=== PATIENT | female | born 1980 | race Caucasian/White ===

== ENCOUNTER 2018-03-03 10:29 | Emergency (ER) | payer BC, SELFPAY ==
[2018-03-03 10:38] VITALS: BP 126/78; PULSE 76; RESP 16; TEMP 36.5; O2SAT 98
--- NOTE | 2018-03-03 10:45 | W.ED.GENAD ---
Discharge Plan Disposition Patient Disposition: HOME Condition: Good Discharge Details Chief Complaint: EyeProblem Clinical Impression: Conjunctivitis Primary Care Provider: Renate Chu ED Provider: Volodymyr Son Home Meds and New Rx's Prescriptions: New artificial tears(hypromellose) 0.5 % drops 1 drp OP BID PRN (Reason: dry eye(s)) Qty: 15 RF: 0 erythromycin 5 mg/gram (0.5 %) ointment 1.25 cm OP TID Qty: 1 RF: 0 No Action ibuprofen 200 MG capsule 200 mg PO PRN PRNQty: 3 RF: 0 albuterol sulfate [ProAir HFA] 8.5 GM HFA aerosol inhaler 1 puff Inhalation Q4H PRN RF: 0 Loratadine 10 MG TAB.RAPDIS 10 mg PO PRN RF: 0 cyclobenzaprine 10 MG tablet 10 mg PO Q8H PRN PRNQty: 20 RF: 0 Discharge Instructions Instructions: Conjunctivitis (ED) Additional Instructions: Please use the artificial tears as directed. Please apply warm compresses to your eyes regularly. Please hand wash frequently. Please only use the antibiotic ointment if you develop yellow green or gunky drainage from your eyes. He notes any vision changes, eye pain, fever, chills, or worsening of her symptoms please return immediately. If you notice any worsening of your symptoms, or any new symptoms such as vomiting, diarrhea, fever, chills, shortness of breath, chest pain, numbness, weakness, or fainting , please return immediately to the emergency department for reevaluation. Please follow up with your primary care provider as soon as possible for reassessment and reevaluation. As always, it was a pleasure participating in your medical care today. Referrals: Renate Chu [Primary Care Provider] - Medical Decision Making This is a pleasant 38-year-old female who comes in out of concern for potential conjunctivitis/pinkeye. She states that her was diagnosed yesterday she had some crusting on her eyes this morning she went to be checked out. She has no red flags of history of STDs, contact lens use, or other abnormalities. No healing discharge. Per history minimal watery discharge was present. No evidence of significant conjunctivitis on exam, normal visual acuity. No history of trauma to suggest foreign body. Physical exam demonstrates no evidence of foreign body, rust ring, or foreign body with eversion of eyelids bilaterally. At the very most the patient may have mild viral conjunctivitis. We will give a prescription for artificial tears. We will give a prescription for erythromycin ointment which I have discussed with the patient that is only to be used if she notes some purulent discharge which we had an extensive discussion regarding for when to start using this. We discussed red flags which to return and the patient understands. I have extensively reviewed the treatment plan and discharge instructions with the patient. I have addressed all patient concerns at this time. The patient was made aware of what symptoms to monitor for that would warrant a return to the emergency department. Discussed the plan with the patient, they demonstrate verbal understanding and agreement with our assessment and plan at this time. HPI General Date/Time Provider Initiated Documentation: 03/03/18 10:45. HPI Narrative: This is a pleasant 38-year-old female with no past medical history except for asthma who does not wear contact lenses or glasses who presents today for evaluation of itchiness in her eyes. She states that her significant other just was diagnosed with pinkeye in the last 24 hours, she came in to be checked out. She noticed a small amount of crusting earlier this morning but denies any purulent discharge, history of STDs, vision changes, aversion to light, history of autoimmune conditions, or trauma to the eye. She denies any significant pain. She denies any changes in her vision in general, any floaters, or any other abnormalities. She has no other complaints at this time. No other modifying factors. She denies any recent surgical or pertinent family history Related Data Home Medications Medication Instructions Recorded Confirmed Loratadine 10 mg PO PRN 12/02/16 03/03/18 albuterol sulfate [ProAir HFA] 1 puff INHALATION Q4H PRN inhaler 12/02/16 03/03/18 ibuprofen 200 mg PO PRN PRN #3 12/02/16 03/03/18 cyclobenzaprine 10 mg PO Q8H PRN PRN #20 tab 12/12/16 03/03/18 artificial tears(hypromellose) 1 drp OP BID PRN #15 ml 03/03/18 erythromycin 1.25 cm OP TID #1 gm 11/07/18 Previous Rx's Medication Instructions Recorded cyclobenzaprine 10 mg PO Q8H PRN PRN #20 tab 12/12/16 artificial tears(hypromellose) 1 drp OP BID PRN #15 ml 03/03/18 erythromycin 1.25 cm OP TID #1 gm 03/03/18 Allergies Allergy/AdvReac Type Severity Reaction Status Date / Time mold Allergy Intermediate Uncoded 03/03/18 10:40 General Stated Complaint: EyeProblem PONCE: 4 Review of Systems Review of Systems All systems reviewed & are unremarkable except as noted in HPI and below PFSH Family History Mother Essential hypertension Social History Smoking/Tobacco Use Status: Never Exam Narrative Exam Narrative: 1.Const: Well-nourished, Well-developed, appearing stated age 2.Eyes: PERRL, no conjunctival injection, and symmetrical lids. No watery or purulent discharge. No crusting over the eyelashes. No evidence of abnormality on the conjunctiva. Visual acuity is normal in both eyes. Peripheral vision intact. No nystagmus. Fundoscopic exam shows normal optic discs and normal vasculature. No external signs of preseptal cellulitis, no redness around the eye, no proptosis. No hyphema, no signs of trauma around the eye, no periorbital emphysema. Visual acuity as documented in chart. 3.ENT: Atraumatic external nose and ears. Moist MM. Neck: Symmetric, trachea midline, No thyromegaly. 4.CVS: +S1/S2, No murmurs or gallops. Peripheral pulses 2+ and equal in all extremities. Brisk capillary refill in all extremities. 5.RESP: Unlabored respiratory effort. Clear to auscultation bilaterally. No wheezes rales or rhonchi 6.GI: Soft, Nontender/Nondistended, No hepatosplenomegaly. No guarding or rebound. 7.MSK: Normocephalic/Atraumatic, Extremities w/o deformity or ttp No cyanosis or clubbing, Normal movement of all extremities 8.Skin: Warm, Dry. No rashes or lesions. 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 Sensation grossly intact, no focal neurologic deficits. 10.Psych: (AAO) x3. Appropriate mood and affect Course Vital Signs Temperature 36.5 C 03/03/18 10:38 Pulse 76 03/03/18 10:38 Respiratory Rate 16 03/03/18 10:38 Blood Pressure 126/78 03/03/18 10:38 Pulse Oximetry 98 03/03/18 10:38 Temperature 36.5 C 03/03/18 10:38 Pulse 76 03/03/18 10:38 Respiratory Rate 16 03/03/18 10:38 Respiratory Effort 03/03/18 10:38 Blood Pressure 126/78 03/03/18 10:38 Blood Pressure Position Supine 03/03/18 10:38 Pulse Oximetry 98 03/03/18 10:38 Oxygen Delivery Method Room Air 03/03/18 10:38 Oxygen Flow Rate 0 03/03/18 10:38 Pain Level 0 03/03/18 10:38
== END 2018-03-03 10:55 | disposition home or self-care (01) ==
LOC: ER 11:00
PROVIDERS: Emergency Provider Student in an Organized Health Care Education/Training Program; PCP Nurse Practitioner
DX: H10.33 Unspecified acute conjunctivitis, bilateral (principal)
CPT/HCPCS: 99283

== ENCOUNTER 2020-01-10 11:56 | Emergency (ER) | payer SELFPAY ==
[2020-01-10 12:01] VITALS: BP 108/73; PULSE 78; RESP 16; TEMP 36.5; O2SAT 96
--- NOTE | 2020-01-10 12:32 | W.ED.GENAD ---
Discharge Plan Disposition Patient Disposition: HOME Condition: Stable Discharge Details Clinical Impression: Cellulitis Primary Care Provider: Renate Chu ED Provider: Eduar Evans Home Meds and New Rx's Prescriptions: New cephalexin [Keflex] 500 mg capsule 500 mg PO QID 10 Days Qty: 40 RF: 0 Continued ibuprofen 200 MG capsule 800 mg PO PRN PRNQty: 3 RF: 0 albuterol sulfate [ProAir HFA] 8.5 GM HFA aerosol inhaler 1 puff Inhalation Q4H PRN RF: 0 Loratadine 10 MG TAB.RAPDIS 10 mg PO PRN RF: 0 Discharge Instructions Instructions: Cellulitis (ED) Additional Instructions: Keflex as directed. [id number] Tylenol and/or Motrin as directed for discomfort. I recommend continuing warm soaks and Epson salts. Please watch for new or worsening symptoms and return to the ER for any concerns. As we discussed, there is no indication for incision and drainage at this time but if it begins to swell it may require this. I will also give you the name and number of our local orthopedic provider as you may need your toenail removed if symptoms are not improving with more conservative therapy. Referrals: Tommie Daniel MD [ [facility] STAFF PHYSICIAN] - Medical Decision Making 39-year-old female presents for toe infection. It sounds as though 3 or 4 days ago she had a true paronychia which has since drained. Now the area remains tender, erythematous but is not swollen or draining. Appears to be cellulitis without any clear indication for incision and drainage. Will recommend gvni-uva-wkphomb analgesia, warm soaks and/or compresses, and I will provide Keflex. We discussed the signs and symptoms of paronychia and indication for I&D. We also discussed the importance of following up with orthopedics if symptoms do not improve with conservative care, may need the toenail extracted. Patient is comfortable with this plan and has no additional questions or concerns Medical Records Medical records reviewed: Yes I reviewed the patient's medical records. HPI General Mode of arrival: ambulatory. Date/Time Provider Initiated Documentation: 01/10/20 12:32. Limitations to Documentation: no limitations. Information obtained by: patient. HPI Narrative: 39-year-old female presents to the ER for right great toe pain. She reports for the past week or so she has had some discomfort which is initially nontraumatic. Earlier in the week she had increased pain and swelling but has been doing warm soaks and drained it with a needle. The swelling and drainage has improved but she continues having pain. Denies fever, numbness, tingling, weakness. Denies skin rash. Related Data Home Medications Medication Instructions Recorded Confirmed Loratadine 10 mg PO PRN 12/02/16 01/10/20 albuterol sulfate [ProAir HFA] 1 puff INHALATION Q4H PRN inhaler 12/02/16 01/10/20 ibuprofen 800 mg PO PRN PRN #3 12/02/16 01/10/20 cephalexin [Keflex] 500 mg PO QID 10 Days #40 cap 01/10/20 Previous Rx's Medication Instructions Recorded cephalexin [Keflex] 500 mg PO QID 10 Days #40 cap 01/10/20 Allergies Allergy/AdvReac Type Severity Reaction Status Date / Time mold Allergy Intermediate Uncoded 01/10/20 12:06 General Stated Complaint: Cellulitis PONCE: 4 Review of Systems Constitutional Constitutional: Denies fever(s) Musculoskeletal Musculoskeletal: Denies arthralgias, Denies numbness and Denies tingling Integumentary/Breasts Skin/Breast: Reports erythema and Denies rash Neurologic Neurologic: Denies numbness and Denies tingling PFSH Family History Mother Essential hypertension Social History Smoking/Tobacco Use Status: Never Alcohol Intake: current Alcohol Intake frequency: 0-2 drinks per day Drug use: Occasionally Substance use type: marijuana Do you feel safe at home: Yes Do you feel safe in your relationship?: Yes Exam Const General: cooperative, healthy appearing, comfortable and no acute distress Orientation: alert and awake [facility] Head: normal to inspection, normocephalic and atraumatic Mouth: moist mucous membranes Eyes Conjunctivae: conjunctivae normal Neck Neck: normal visual inspection, trachea midline and supple Resp Effort & Inspection: normal respiratory effort and able to speak in complete sentences Cardio Rate: regular rate Rhythm: regular rhythm Skin General skin exam: no rashes or lesions noted Neuro General: patient alert, patient awake, moves all extremities and no focal motor deficits Gait: normal gait Sensory Exam: no sensory deficits noted Extrem Ankle/foot/toe images: 1. Mild erythema, warmth, tenderness to palpation. There is no swelling, induration or fluctuance. Skin is intact. Neuro, vascular, tendon intact. Normal capillary refill Psych Appearance: grossly normal Mental Status: mental status grossly normal Course Vital Signs Vital signs: Vital Signs Temperature 36.5 C 01/10/20 12:01 Pulse 78 01/10/20 12:01 Respiratory Rate 16 01/10/20 12:01 Blood Pressure 108/73 01/10/20 12:01 Pulse Oximetry 96 01/10/20 12:01 Temperature 36.5 C 01/10/20 12:01 Temperature Source Temporal Artery Scan 01/10/20 12:01 Pulse 78 01/10/20 12:01 Respiratory Rate 16 01/10/20 12:01 Respiratory Effort Non-Labored 01/10/20 12:04 Blood Pressure 108/73 01/10/20 12:01 Blood Pressure Position Sitting 01/10/20 12:01 Pulse Oximetry 96 01/10/20 12:01 Oxygen Delivery Method Room Air 01/10/20 12:01 Oxygen Flow Rate 0 01/10/20 12:01 Pain Level 6 01/10/20 12:01
== END 2020-01-10 12:46 | disposition home or self-care (01) ==
PROVIDERS: Emergency Provider Physician Assistant; PCP Nurse Practitioner
DX: L03.031 Cellulitis of right toe (principal)
CPT/HCPCS: 99283

== ENCOUNTER 2020-09-17 12:51 | Outpatient (REF) | payer MEDICAID, SELFPAY ==
[2020-09-17 15:50] LABS: HCT 40.9 % (36.0-46.0); HGB 14.4 g/dL (11.2-15.7); MCH 31.6 pg (27.0-33.0); MCHC 35.2 % (32.0-36.0); MCV 89.9 fL (80-95); MPV 9.2 fL (8.0-11.0); Platelet Count 417 10^3/uL (130-400); RBC 4.55 10^6/uL (3.93-5.22); RDW 12.7 % (11.7-14.6); RDW-SD 42.1 fL; WBC 8.01 10^3/uL (4.4-10.8)
[2020-09-17 16:09] LABS: ALT 28 U/L (14-59); AST 18 U/L (15-37); Alkaline Phosphatase 65 U/L (46-116); BUN 13 mg/dL (7-18); Bilirubin, Total 1.2 mg/dL (0.2-1.0); CREATININE 0.8 mg/dL (0.55-1.02); Calcium 8.9 mg/dL (8.5-10.1); Calculated LDL 127 mg/dL (<100); Chloride 105 mmol/L (98-107); Cholesterol 233 mg/dL (<200); Glucose 112 mg/dL (74-106); HDL Cholesterol 93 mg/dL (40-60); Potassium 4.1 mmol/L (3.5-5.1); Sodium 142 mmol/L (136-145); TSH (W/Ref FT4) 1.49 uIU/mL (0.36-3.74); Total Protein 7.3 g/dL (6.4-8.2); Triglyceride 65 mg/dL (<150)
[2020-09-17 17:20] LABS: Hemoglobin A1C 5.3 % (<5.7)
== END 2020-09-17 12:52 | disposition home or self-care (01) ==
LOC: NCHCN 12:51
PROVIDERS: PCP Nurse Practitioner; Visit Provider Nurse Practitioner Family
DX: F10.99 Alcohol use, unspecified with unspecified alcohol-induced disorder (principal); R53.83 Other fatigue; J45.20 Mild intermittent asthma, uncomplicated; Z13.220 Encounter for screening for lipoid disorders; N92.4 Excessive bleeding in the premenopausal period; Z13.1 Encounter for screening for diabetes mellitus
CPT/HCPCS: 80053; 80061; 85027; 83036; 84443

== ENCOUNTER 2022-02-20 10:49 | Outpatient (REF) | payer MEDICAID, SELFPAY ==
--- NOTE | 2022-02-20 09:15 | PAPFT_PTH ---
PATIENT: Jose Warner LOC: [facility]#:[id number] AGE/SX: 41/F ROOM: RE02/20/[address]: Delores Rudolph : 1980 BED: DIS: 02/20/2022 SPEC #: [id number] RECD: 02/20/22 17:54 STATUS: CLARISA REQ #: [id number] JASPER: 02/20/22 09:[address]: Delores Rudolph DEPT: [facility] Cytology RECD BY: Lori Maloney Tissues: 1 - CX/ENDOCX FOR PAP SMEARS Procedures: PAP THIN PREP/UVM Screening HPV DNA PROBE Comments: [id number]
[2022-02-20 15:00] LABS: HCT 39.7 % (36.0-46.0); HGB 13.4 g/dL (11.2-15.7); MCH 30.9 pg (27.0-33.0); MCHC 33.8 % (32.0-36.0); MCV 92 fL (80-95); MPV 9.3 fL (8.0-11.0); Platelet Count 349 10^3/uL (130-400); RBC 4.34 10^6/uL (3.93-5.22); RDW 13.2 % (11.7-14.6); RDW-SD 45.1 fL; WBC 6.32 10^3/uL (4.4-10.8)
[2022-02-20 15:23] LABS: Anion Gap 7.1 mmol/L (3-11); BUN 10 mg/dL (7-18); CO2 24.9 mmol/L (21.0-32.0); CREATININE 0.7 mg/dL (0.55-1.02); Calcium 9.2 mg/dL (8.5-10.1); Calculated LDL 114 mg/dL (<100); Chloride 106 mmol/L (98-107); Cholesterol 211 mg/dL (<200); Estimated GFR 110.67 (mL/min/1.73m2); Glucose 103 mg/dL (74-106); HDL Cholesterol 85 mg/dL (40-60); Potassium 4.2 mmol/L (3.5-5.1); Sodium 138 mmol/L (136-145); Triglyceride 60 mg/dL (<150)
== END 2022-02-20 10:50 | disposition home or self-care (01) ==
LOC: NCHCN 10:49
PROVIDERS: PCP Nurse Practitioner Family; Visit Provider Nurse Practitioner Family
DX: F41.8 Other specified anxiety disorders (principal); N93.8 Other specified abnormal uterine and vaginal bleeding; E78.89 Other lipoprotein metabolism disorders; Z12.4 Encounter for screening for malignant neoplasm of cervix; Z11.51 Encounter for screening for human papillomavirus (HPV)
CPT/HCPCS: 80048; 80061; 85027; 88142; 87624

== ENCOUNTER 2022-04-21 11:32 | Emergency (ER) | payer MEDICAID, SELFPAY ==
[2022-04-21 11:34] VITALS: BP 133/79; PULSE 73; RESP 18; TEMP 37; O2SAT 98
--- NOTE | 2022-04-21 12:20 | ED.GENADUL_ITS ---
Discharge Plan Disposition Patient Disposition: Home Condition: Good Discharge Details Clinical Impression: Abscess Primary Care Provider: Delores Rudolph ED Provider: Rosio Cortez Home Meds and New Rx's Prescriptions: Continued clonazepam [Klonopin] 0.5 mg tablet 0.5 mg PO DAILY diazepam [Valium] 10 mg tablet 10 mg PO QHS PRN ibuprofen 200 MG capsule 800 mg PO PRN PRNQty: 3 albuterol sulfate [ProAir HFA] 8.5 GM HFA aerosol inhaler 1 puff Inhalation Q4H PRN Loratadine 10 MG TAB.RAPDIS 10 mg PO PRN Discharge Instructions Instructions: Cellulitis (ED), Abscess (ED) Additional Instructions: Please return immediately to the emergency department if you develop any new or worsening symptoms, if your condition does not improve as expected, or if you become otherwise concerned. It is extremely important that you call soon as possible to make an appointment to be seen in follow-up for this visit by your primary care doctor. It is very important that you either return here to the emergency department or see your PCP in 72 hours for a wound check. Referrals: Delores Rudolph [Primary Care Provider] - Discharge Data Discharge Date/Time-TO BE ENTERED AT DEPARTURE: 04/21/22 13:30 Medical Decision Making Concern for abscess. Abscess visualized under bedside US, approximately 1.5cmx1.5cm fluid collection, doppler used and negative over location. Incision and drainage performed under usual sterile technique and under US guidance with small amount of pus drained. No complications, see procedure noted. Exam/hx at this time not c/w meningitis, epidural abscess/hematoma, sepsis. Plan for PO abx, wound check here in ED in 48-72 hours and outpt f/u with PCP. I had a discussion with Patient regarding return to emergency department precautions, home care, and importance of outpatient follow-up. Pt verbalizes understanding of the plan and is amenable. Patient discharged to home with clear plan for outpatient follow-up. All questions were answered. Disposition decision was made weighing the risks and benefits of hospitalization versus outpatient treatment, the risk for further decompensation, and the patient's wishes. HPI General Mode of arrival: ambulatory . Date/Time Provider Initiated Documentation: 04/21/22 11:44 . Limitations to Documentation: no limitations . Information obtained by: patient, RN notes reviewed and old records reviewed . HPI Narrative: Jose Warner is a 42-year-old woman without reported history of medical problems presenting to the emergency department with ingrown hair in the back of her neck. Patient reports that approximately 1 week ago she noticed a bump in the back of her neck at her hairline. Patient reports that it has seemed to have grown somewhat since onset despite patient taking hot showers/using warm compresses. She reports that she feels the pain is radiating from the area and causing mild headaches. She reports that she has had similar ingrown hairs/small abscesses in other areas of her body in the past that have resolved on their own without medical treatment. She denies any other pain, fever, cough , shortness of breath, vomiting, diarrhea, numbness, weakness, other rash. Related Data Home Medications Medication Instructions Recorded Confirmed Loratadine 10 mg PO PRN 12/02/16 09/04/21 albuterol sulfate 90 mcg/actuation 1 puff inhalation Q4H PRN 12/02/16 09/04/21 aerosol inhaler (ProAir HFA) ibuprofen 200 mg capsule 800 mg PO PRN PRN ##3 12/02/16 09/04/21 clonazepam 0.5 mg tablet (Klonopin) 0.5 mg PO DAILY 09/04/21 diazepam 10 mg tablet (Valium) 10 mg PO QHS PRN 09/04/21 Allergies Allergy/AdvReac Type Severity Reaction Status Date / Time mold Allergy Intermediate Uncoded 09/04/21 12:49 General Stated Complaint: Cellulitis PONCE: 4 Review of Systems Narrative: Constitutional: denies fevers Eyes: denies eye pain ENT: denies ear pain, dental pain, sore throat Cardiovascular: denies chest pain, edema Respiratory: denies SOB, cough GI: denies abdominal pain, vomiting, diarrhea : denies flank pain MSK: denies back pain, arthralgias, myalgias Skin: reports rash/bump at the back of neck Neuro: denies headaches, numbness, weakness PFSH All Active Problems Alcohol use (Acute) DUB (dysfunctional uterine bleeding) (Acute) Pelvic pain (Acute) Family History Mother Essential hypertension Social History Smoking/Tobacco Use Status: Never Smoking risk assessment performed?: Yes Alcohol Intake: current Alcohol Intake frequency: 3 or more drinks per day Drug use: Occasionally Substance use type: marijuana Do you feel safe at home: Yes Do you feel safe in your relationship?: Yes History History 0 Para Hx # Term Pregnancies Multiple births Hx # Pregnancies Ectopic pregnancies AB induced Hx Number of Living Children AB spontaneous Exam Narrative Exam Narrative: constitutional: well and [id number], pleasant, conversing normally HENT: head atraumatic/normocephalic/normal inspection, mucous membranes moist Eyes: conjunctiva normal, sclera normal, pupils 3mm b/l Neck: no stridor, full painless, ROM, trachea midline, 2x2cm abscess central posterior neck just below hairline, no drainage, 1cm of mild surrounding cellulitis, focal TTP over abscess, no cervical spine TTP Chest: normal inspection Resp: normal work of breathing, speaking in full sentences Cardio: normal rate, normal rhythm Back: normal inspection, no rash Skin: warm, dry, normal color, no rash Neuro: alert, not altered, grossly non-focal, normal tone Ext: no edema Psych: normal mood, normal affect, normal behavior Course Vital Signs Vital signs: Vital Signs Temperature 37.0 C 04/21/22 11:34 Pulse 73 04/21/22 11:34 Respiratory Rate 18 04/21/22 11:34 Blood Pressure 133/79 04/21/22 11:34 Pulse Oximetry 98 04/21/22 11:34 Temperature 37.0 C 04/21/22 11:34 Temperature Source Tympanic 04/21/22 11:34 Pulse 73 04/21/22 11:34 Respiratory Rate 18 04/21/22 11:34 Respiratory Effort 04/21/22 11:37 Blood Pressure 133/79 04/21/22 11:34 Blood Pressure Position Supine 04/21/22 11:34 Pulse Oximetry 98 04/21/22 11:34 Oxygen Delivery Method Room Air 04/21/22 11:34 Oxygen Flow Rate 0 04/21/22 11:34 Pain Level 5 04/21/22 11:34 Procedures Abscess I/D Site: Neck Sedation/analgesia: None Local Anesthetic: Other Anesthetic Amount of anesthesia used (mL): 2 Technique: Incised with #11 Blade Amount of fluid expressed (mL): 1 Irrigation: Yes Packing used?: None PAWSS Have you Been Recently Intoxicated or Drunk Within the Last 30 days?: No Have you Ever Experienced Previous Episodes of Alcohol Withdrawal?: No Have you ever Experienced Withdrawal Seizures?: No Have you ever Experienced Delirium Tremens(DT)s?: No Have you ever undergone Alcohol Rehabilitation Treatment (i.e, inpt ot outpatient treatment programs)?: No Have you ever Experienced Blackouts?: No Have you ever Combined Alcohol with other Downers within the last 90 days?: No Have you ever Combined Alcohol with any other Substance of Abuse during the last 90 days?: No Positive Blood Alcohol level on Presentation? [PCS.BAL]: No Evidence of Increased Autonomic Activity (i.e. HR>120, tremor, sweating, agitation, nausea)?: No Result: 0
[2022-04-21] MEDS: Lidocaine/Epinephri/Tetracaine Topical Gel 3 ML TP (12:35)
[2022-04-21] MEDS: Doxycycline Hyclate 100 MG CAP PO (13:18)
[2022-04-21 13:21] VITALS: BP 124/84; PULSE 74; TEMP 36.9; O2SAT 98
== END 2022-04-21 13:30 | disposition home or self-care (01) ==
PROVIDERS: Emergency Provider Student in an Organized Health Care Education/Training Program; PCP Nurse Practitioner Family
DX: L02.11 Cutaneous abscess of neck (principal)
CPT/HCPCS: 10060

== ENCOUNTER 2022-04-24 01:44 | Outpatient (CLI) | payer MEDICAID, SELFPAY ==
--- NOTE | 2022-04-24 | DI.MAMMO_ITS ---
Exam(s) US BREAST LT COMPLETE MG MAMMO DIAGNOSTIC BI EXAM: MG MAMMO DIAGNOSTIC BI - AND COMPETE LEFT BREAST ULTRASOUND CLINICAL HISTORY: LT BREAST PAIN, N64.4 RADIATING INTO LUQ AROUND 1-2. TECHNIQUE: BOTH CC AND MLO views of both breasts mammographic images were obtained with 3D tomosynth esis technique and utilizing computer aided detection (CAD). Complete left breast ultrasound was performed including all 4 quadrants as well as the retroareolar r egion and left axilla COMPARISON: Prior mammograms were reviewed. This patient apparently has left breast pain for few mo nths, on and off. She does not feel an actual lump. FINDINGS: DIAGNOSTIC BILATERAL MAMMOGRAM: There has been no significant change in the appearance and distribution of the fibroglandular tissue. There are no new spiculated masses nor malignant-appearing microcalcification groups in either breast . There is no new architectural distortion or skin thickening-traction. COMPLETE LEFT BREAST ULTRASOUND: There is no evidence of solid or significant cystic lesions in all 4 quadrants of the left breast nor in the retroareolar region. Scanning of the left axilla is negative for significant adenopathy. IMPRESSION: 1. No mammographic evidence of malignancy in either breast. 2. Negative complete left breast ultrasound. Appropriate follow-up is repeat breast imaging in 3 months if her pain continues, with earlier imagin g if she feels a new lump.. The patient was informed of the findings and follow-up recommendations prior to leaving the [facility] t today. BI-RADS Category 3 - 3 month - Probably Benign Finding: Recommend follow-up imaging in 3 months Breast Density - Category B - Scattered areas of fibroglandular density Breast density Category C or D implies that the patient has dense breast tissue. Dense breast tissue can make it harder to find cancer on a mammogram. Dense breast tissue is also associated with an incr eased risk of breast cancer. This information about the result of the mammogram report was provided to the patient to raise their awareness. Use this report when you speak with the patient about their risks for breast cancer, which includes their family history. At that time, you may recommend additional screening tests (Ultrasoun d or MRI) as these tests may add significant information. A negative radiographic report should not delay biopsy if a dominant or clinically suspicious mass is present. Up to ten percent of cancers are not identified on mammography. A negative report may reinforce clinical impression. Adenosis and dense breasts may obscure an underlying neoplasm. False positive reports average 6 to 10%. Patient will receive a letter notifying them of these results.
== END 2022-04-24 02:04 ==
LOC: DI 01:44
PROVIDERS: PCP Nurse Practitioner Family; Visit Provider Nurse Practitioner Family
DX: N64.4 Mastodynia (principal)
CPT/HCPCS: 76642; 77062; 77066; G0279

== ENCOUNTER 2022-04-24 13:57 | Emergency (ER) | payer MEDICAID, SELFPAY ==
[2022-04-24 14:16] VITALS: BP 124/74; PULSE 75; RESP 18; TEMP 36.8; O2SAT 98
[2022-04-24 15:07] VITALS: BP 116/69; PULSE 75; RESP 19; O2SAT 97
--- NOTE | 2022-04-24 15:48 | ED.GENADUL_ITS ---
Discharge Plan Disposition Patient Disposition: Home Condition: Improving Discharge Details Clinical Impression: Cellulitis and abscess of neck Primary Care Provider: Delores Rudolph ED Provider: Ze Hu Home Meds and New Rx's Prescriptions: Continued clonazepam [Klonopin] 0.5 mg tablet 0.5 mg PO DAILY diazepam [Valium] 10 mg tablet 10 mg PO QHS PRN ibuprofen 200 MG capsule 800 mg PO PRN PRNQty: 3 albuterol sulfate [ProAir HFA] 8.5 GM HFA aerosol inhaler 1 puff Inhalation Q4H PRN Loratadine 10 MG TAB.RAPDIS 10 mg PO PRN doxycycline hyclate 100 mg tablet 100 mg PO BID 10 Days Qty: 19 0RF Discharge Instructions Instructions: Abscess (ED) Additional Instructions: Continue warm soaks 2-3 times daily. Finish antibiotics as previously prescribed. Return for any acute concern. Medical Decision Making 42-year-old female who recently had a incision and drainage of a posterior neck lesion. She presents for recheck. She has been on antibiotics with improvement. No fever or chills. The area is well-appearing. She will continue warm soaks, oral antibiotics, return for any acute concern. HPI General Mode of arrival: ambulatory . Date/Time Provider Initiated Documentation: 04/24/22 14:19 . Limitations to Documentation: no limitations . Information obtained by: patient . History of Present Illness 42 year old F presents to the emergency department with the chief complaint of Recheck abscess, described as mild, Quality is described as dull and constant, and is localized to the neck. Patient reports no radiation. Patient started experiencing this day(s) and it has been other (Improving). No relieving factors improve symptom(s), No exacerbating factors reported . Patient notes no other symptoms.. Patient did receive the following treatments prior to arrival, other (Antibiotics) Related Data Home Medications Medication Instructions Recorded Confirmed Loratadine 10 mg PO PRN 12/02/16 09/04/21 albuterol sulfate 90 mcg/actuation 1 puff inhalation Q4H PRN 12/02/16 09/04/21 aerosol inhaler (ProAir HFA) ibuprofen 200 mg capsule 800 mg PO PRN PRN ##3 12/02/16 09/04/21 clonazepam 0.5 mg tablet (Klonopin) 0.5 mg PO DAILY 09/04/21 diazepam 10 mg tablet (Valium) 10 mg PO QHS PRN 09/04/21 doxycycline hyclate 100 mg tablet 100 mg PO BID 10 days #19 tabs 04/21/22 Previous Rx's Medication Instructions Recorded doxycycline hyclate 100 mg tablet 100 mg PO BID 10 days #19 tabs 04/21/22 Allergies Allergy/AdvReac Type Severity Reaction Status Date / Time mold Allergy Intermediate Uncoded 09/04/21 12:49 General Stated Complaint: Recheck PONCE: 4 PFSH All Active Problems (Updated 04/24/22 @ 15:50 by Ze Hu MD) Abscess (Acute) Cellulitis and abscess of neck (Acute) Alcohol use (Acute) DUB (dysfunctional uterine bleeding) (Acute) Pelvic pain (Acute) Family History Mother Essential hypertension Social History Smoking/Tobacco Use Status: Never Smoking risk assessment performed?: Yes Alcohol Intake: current Alcohol Intake frequency: 3 or more drinks per day Drug use: Occasionally Substance use type: marijuana Do you feel safe at home: Yes Do you feel safe in your relationship?: Yes History History 0 Para Hx # Term Pregnancies Multiple births Hx # Pregnancies Ectopic pregnancies AB induced Hx Number of Living Children AB spontaneous Exam Narrative Exam Narrative: GEN: awake, alert, oriented 3. Pleasant, well groomed, interactive. HEAD: Normocephalic, atraumatic ENT: Mucous membranes moist, oropharynx unremarkable, External ear exam unremarkable EYES: PERRL, EOMI NECK: Full ROM, no DANIEL, no menigismus. There is posterior area of discrete cellulitis with underlying scar tissue. No surrounding fluctuance, nontender CHEST/RESP: No respiratory distress Neuro: Grossly normal neurologic exam, conversant, interactive. Psych: Speech fluent, thoughts congruent, affect normal Course Vital Signs Vital signs: Vital Signs Temperature 36.8 C 04/24/22 14:16 Pulse 75 04/24/22 14:16 Respiratory Rate 18 04/24/22 14:16 Blood Pressure 124/74 04/24/22 14:16 Pulse Oximetry 98 04/24/22 14:16 Temperature 36.8 C 04/24/22 14:16 Temperature Source Temporal Artery Scan 04/24/22 14:16 Pulse 75 04/24/22 15:07 Respiratory Rate 19 04/24/22 15:07 Blood Pressure 116/69 04/24/22 15:07 Blood Pressure Position Sitting 04/24/22 14:16 Pulse Oximetry 97 04/24/22 15:07 Oxygen Delivery Method Room Air 04/24/22 15:07 Oxygen Flow Rate 0 04/24/22 15:07 Pain Level 4 04/24/22 15:07
== END 2022-04-24 15:53 | disposition home or self-care (01) ==
PROVIDERS: Emergency Provider Emergency Medicine; PCP Nurse Practitioner Family
DX: L03.221 Cellulitis of neck (principal); L02.11 Cutaneous abscess of neck
CPT/HCPCS: 99281

== ENCOUNTER 2023-03-13 21:34 | Outpatient (REF) | payer MEDICAID, SELFPAY | END 2023-03-13 21:35 | disposition home or self-care (01) | LOC: LBN 21:34 | PROVIDERS: PCP Nurse Practitioner Family; Visit Provider Physician Assistant Medical | DX: J02.9 Acute pharyngitis, unspecified (principal) | CPT/HCPCS: 87637; 87070 ==

== ENCOUNTER 2023-03-21 10:48 | Emergency (ER) | payer MEDICAID, SELFPAY ==
[2023-03-21 10:57] VITALS: BP 132/94; PULSE 86; RESP 20; TEMP 36.7
[2023-03-21 12:56] VITALS: RESP 15
--- NOTE | 2023-03-21 14:05 | ED.GENADUL_ITS ---
Discharge Plan Disposition Patient Disposition: Home Discharge Details Clinical Impression: Abscess Primary Care Provider: Delores Rudolph ED Provider: Osvaldo Reese Home Meds and New Rx's Prescriptions: New sulfamethoxazole-trimethoprim [Bactrim DS] 800-160 mg tablet 1 tab PO BID Qty: 14 0RF Continued clonazepam [Klonopin] 0.5 mg tablet 0.5 mg PO DAILY diazepam [Valium] 10 mg tablet 10 mg PO QHS PRN ibuprofen 200 MG capsule 800 mg PO PRN PRNQty: 3 albuterol sulfate [ProAir HFA] 8.5 GM HFA aerosol inhaler 1 puff Inhalation Q4H PRN Loratadine 10 MG TAB.RAPDIS 10 mg PO PRN Discharge Instructions Instructions: Abscess (ED) Additional Instructions: Please closely monitor your symptoms and return immediately for any new or significant worsening of your condition. Please take antibiotics as prescribed and if you have improving symptoms or at least steady symptoms with no worsening you may follow-up with primary care provider at your normally scheduled appointment later this week. Again otherwise return immediately to the emergency department. Please take acetaminophen or ibuprofen as needed for pain control Referrals: Delores Rudolph [Primary Care Provider] - Discharge Data Discharge Date/Time-TO BE ENTERED AT DEPARTURE: 03/21/23 14:17 Medical Decision Making Patient presenting the emergency department for chief complaint of swollen lump in the back of her neck. Physical exam shows approximately 1 cm or less swollen tender indurated area to the back of right side of neck just lateral to spine. No lymphadenopathy is noted, slight erythema is noted, scar is present from previous incision that was performed due to similar complaints. Ultrasound was used to visualize small fluid collection in the same area that is superficial. Discussed with patient risk versus benefit of needle drainage with 18-gauge needle along with potential that this also could be a lymph node given placement but lower suspicion given appearance of it being superficial . After discussion of risk versus benefit patient gave verbal consent to attempting needle drainage. Sterile technique was utilized after appropriate anesthetic level was achieved with lidocaine. Small amount of purulent fluid was removed. Given placement on neck along with reoccurrence will place patient on Bactrim and have patient closely monitor symptoms. She already has follow-up scheduled for later this week which I feel is appropriate if she is healing well but she states clear understanding to return for new or worsening symptoms. After discussion of diagnosis and plan of care patient has no further needs, questions, or concerns and states clear understanding to return to the emergency department for any worsening symptoms. This documentation was generated using [employer] system, please disregard any oddities of phrase or misspellings. HPI General Mode of arrival: ambulatory . Date/Time Provider Initiated Documentation: 03/21/23 12:13 . Limitations to Documentation: no limitations . Information obtained by: patient and RN notes reviewed . History of Present Illness 43 year old F presents to the emergency department with the chief complaint of Lump on neck, described as moderate and similar to prior episodes, Quality is described as aching, and is localized to the neck. Patient started experiencing this day(s) (2) and it has been constant. No relieving factors improve symptom(s), No exacerbating factors reported . Patient notes no other symptoms.. Patient did receive the following treatments prior to arrival, none Related Data Home Medications Medication Instructions Recorded Confirmed Loratadine 10 mg PO PRN 12/02/16 09/04/21 albuterol sulfate 90 mcg/actuation 1 puff inhalation Q4H PRN 12/02/16 09/04/21 aerosol inhaler (ProAir HFA) ibuprofen 200 mg capsule 800 mg PO PRN PRN ##3 12/02/16 09/04/21 clonazepam 0.5 mg tablet (Klonopin) 0.5 mg PO DAILY 09/04/21 diazepam 10 mg tablet (Valium) 10 mg PO QHS PRN 09/04/21 sulfamethoxazole 800 1 tab PO BID #14 tabs 03/21/23 mg-trimethoprim 160 mg tablet (Bactrim DS) Previous Rx's Medication Instructions Recorded sulfamethoxazole 800 1 tab PO BID #14 tabs 03/21/23 mg-trimethoprim 160 mg tablet (Bactrim DS) Allergies Allergy/AdvReac Type Severity Reaction Status Date / Time mold Allergy Intermediate Uncoded 09/04/21 12:49 General Stated Complaint: GenMedical PONCE: 3 Review of Systems Constitutional Constitutional: Denies chills, Denies fever(s) and Denies headache(s) ENT Ears, Nose, Mouth, and Throat: Denies headache(s), Reports neck mass and Denies neck pain Musculoskeletal Musculoskeletal: Denies neck pain, Denies numbness, Denies stiffness and Denies tingling Integumentary/Breasts Skin/Breast: Reports as per HPI and Reports furuncle Neurologic Neurologic: Denies headache(s), Denies numbness and Denies tingling PFSH All Active Problems Abscess (Acute) Alcohol use (Acute) DUB (dysfunctional uterine bleeding) (Acute) Pelvic pain (Acute) Family History Mother Essential hypertension Social History Smoking/Tobacco Use Status: Never Smoking risk assessment performed?: Yes Alcohol Intake: current Alcohol Intake frequency: 3 or more drinks per day Drug use: Occasionally Substance use type: marijuana Housing: house Do you feel safe at home: Yes Do you feel safe in your relationship?: Yes History History 2 0 Para Hx # Term Pregnancies Multiple births Hx # Pregnancies Ectopic pregnancies AB induced Hx Number of Living Children AB spontaneous Exam Const General: cooperative, no acute distress and not ill appearing Orientation: alert, awake and oriented x3 HENMT Mouth: moist mucous membranes Neck Neck: normal visual inspection Lymphatic: no lymphadenopathy noted Neck images: 2 1. small induration/ swelling Resp Effort & Inspection: normal respiratory effort, able to speak in complete sentences and no respiratory distress Neuro General: patient alert, patient awake, patient oriented x3, moves all extremities and no focal motor deficits Sensory Exam: no sensory deficits noted Course Vital Signs Vital signs: Vital Signs Temperature 36.7 C 03/21/23 10:57 Pulse 86 03/21/23 10:57 Respiratory Rate 20 03/21/23 10:57 Blood Pressure 132/94 H 03/21/23 10:57 Temperature 36.7 C 03/21/23 10:57 Temperature Source Tympanic 03/21/23 12:56 Pulse 86 03/21/23 10:57 Respiratory Rate 15 03/21/23 12:56 Respiratory Effort Normal 03/21/23 12:56 Respiratory Depth Normal 03/21/23 12:56 Respiratory Pattern Normal 03/21/23 12:56 Blood Pressure 132/94 H 03/21/23 10:57 Blood Pressure Position Sitting 03/21/23 10:57 Oxygen Delivery Method Room Air 03/21/23 10:57 Oxygen Flow Rate 0 03/21/23 10:57 Pain Level 6 03/21/23 10:57 Procedures Abscess I/D Site: Neck Side (if applicable): Right Local Anesthetic: Lidocaine 1% Amount of anesthesia used (mL): 2 Technique: Needle Aspiration Amount of fluid expressed (mL): 0.5 Packing used?: None
[2023-03-21] MEDS: Sulfameth/Trimeth DS TAB 1 TAB PO (14:13)
== END 2023-03-21 14:17 | disposition home or self-care (01) ==
PROVIDERS: Emergency Provider Nurse Practitioner Family; PCP Nurse Practitioner Family
DX: L02.11 Cutaneous abscess of neck (principal)
CPT/HCPCS: 10060

== ENCOUNTER 2023-03-26 17:36 | Outpatient (REF) | payer MEDICAID, SELFPAY ==
[2023-03-26 18:54] LABS: ALT 28 U/L (14-59); AST 21 U/L (15-37); Albumin 3.8 g/dL (3.4-5.0); Alkaline Phosphatase 64 U/L (46-116); Anion Gap 7.9 mmol/L (3-11); BUN 11 mg/dL (7-18); Bilirubin, Total 0.6 mg/dL (0.2-1.0); CO2 27.1 mmol/L (21.0-32.0); CREATININE 0.8 mg/dL (0.55-1.02); Calcium 9.2 mg/dL (8.5-10.1); Calculated LDL 124 mg/dL (<100); Chloride 102 mmol/L (98-107); Cholesterol 274 mg/dL (<200); Estimated GFR 93.12 (mL/min/1.73m2); Glucose 102 mg/dL (74-106); HDL Cholesterol 118 mg/dL (40-60); Sodium 137 mmol/L (136-145); Total Protein 7.7 g/dL (6.4-8.2); Triglyceride 164 mg/dL (<150)
[2023-03-26 19:34] LABS: Bilirubin, Direct 0.2 mg/dL (0.0-0.2)
== END 2023-03-26 17:37 | disposition home or self-care (01) ==
LOC: NCHCN 17:36
PROVIDERS: PCP Nurse Practitioner Family; Visit Provider Nurse Practitioner Family
DX: E80.6 Other disorders of bilirubin metabolism (principal); E78.89 Other lipoprotein metabolism disorders; Z00.00 Encounter for general adult medical examination without abnormal findings
CPT/HCPCS: 80053; 80061; 82248

== ENCOUNTER 2023-10-31 08:41 | Emergency (ER) | payer MEDICAID, SELFPAY ==
[2023-10-31 08:45] VITALS: BP 135/85; PULSE 85; RESP 18; TEMP 36.1; O2SAT 95
[2023-10-31 08:48] VITALS: BP 135/85; PULSE 85; RESP 18; TEMP 36.1; O2SAT 95
--- NOTE | 2023-10-31 09:00 | DI.RAD_ITS ---
Exam(s) XR CHEST 2V PA LATERAL EXAM: XR CHEST 2V PA LATERAL CLINICAL HISTORY: cough. TECHNIQUE: 2D digital imaging was performed. COMPARISON: No exams were available for comparison FINDINGS: 2 views: Heart size is normal. The mediastinum is not widened. Lungs are clear. No infiltrates nor pleural effusions. IMPRESSION: No acute pulmonary findings. DATA REPOSITORY: RADIATION DOSE DELIVERED:
[2023-10-31 09:11] VITALS: RESP 5
[2023-10-31] MEDS: Albuterol/Ipratropium 3 ML UPD VIAL UPD (09:11)
[2023-10-31] MEDS: predniSONE 20 MG TAB 40 MG PO (09:12)
--- NOTE | 2023-10-31 09:44 | ED.GENADUL_ITS ---
Discharge Plan Disposition Patient Disposition: Home Condition: Stable Discharge Details Clinical Impression: Bronchitis Primary Care Provider: Delores Rudolph ED Provider: Lori Spain Home Meds and New Rx's Prescriptions: New prednisone 20 mg tablet 40 mg PO ONCE Qty: 8 0RF doxycycline hyclate 100 mg capsule 100 mg PO BID Qty: 14 0RF Continued clonazepam [Klonopin] 0.5 mg tablet 0.5 mg PO DAILY diazepam [Valium] 10 mg tablet 10 mg PO QHS PRN ibuprofen 200 MG capsule 800 mg PO PRN PRNQty: 3 albuterol sulfate [ProAir HFA] 8.5 GM HFA aerosol inhaler 1 puff Inhalation Q4H PRN Loratadine 10 MG TAB.RAPDIS 10 mg PO PRN Discharge Instructions Instructions: Acute bronchitis Additional Instructions: Take doxycycline only if you are still very symptomatic tomorrow, this may be viral and therefore may not respond to the antibiotic Give the prednisone and albuterol time to work for today. 2 puffs of your inhaler every 4 hours with the spacer Should you develop fever, worsening symptoms please return for reassessment do continue the prednisone regardless of whether or not you choose to take anti biotic Referrals: Delores Rudolph [Primary Care Provider] - 2 days HPI General Date/Time Provider Initiated Documentation: 10/31/23 08:41 . HPI Narrative: This 43-year-old female presents with cough, wheezing, shortness of breath. Patient states she has been sick for approximately a week and a half. History of asthma. Smokes marijuana daily. Denies any chance of . Has been using an inhaler at home with relief in symptoms. Denies any nausea or vomiti ng. Denies fever or chills. Denies any recent flights, surgeries, long drives, or history of coagulopathy. Related Data Home Medications Medication Instructions Recorded Confirmed Loratadine 10 mg PO PRN 12/02/16 10/31/23 albuterol sulfate 90 mcg/actuation 1 puff inhalation Q4H PRN 12/02/16 10/31/23 aerosol inhaler (ProAir HFA) ibuprofen 200 mg capsule 800 mg PO PRN PRN ##3 12/02/16 10/31/23 clonazepam 0.5 mg tablet (Klonopin) 0.5 mg PO DAILY 09/04/21 10/31/23 diazepam 10 mg tablet (Valium) 10 mg PO QHS PRN 09/04/21 10/31/23 doxycycline hyclate 100 mg capsule 100 mg PO BID #14 caps 10/31/23 prednisone 20 mg tablet 40 mg (2 x 20 mg) PO ONCE #8 tabs 10/31/23 Previous Rx's Medication Instructions Recorded doxycycline hyclate 100 mg capsule 100 mg PO BID #14 caps 10/31/23 prednisone 20 mg tablet 40 mg (2 x 20 mg) PO ONCE #8 tabs 10/31/23 Allergies Allergy/AdvReac Type Severity Reaction Status Date / Time mold Allergy Intermediate Other (See Uncoded 10/31/23 08:47 Comment) General Stated Complaint: RespSymp PONCE: 3 Exam Narrative Exam Narrative: Alert and oriented, no acute distress lungs with wheezing, no significant respiratory distress, cardiac rate rhythm regular no peripheral edema Course Vital Signs Vital signs: Vital Signs Temperature 36.1 C L 10/31/23 08:45 Pulse 85 10/31/23 08:45 Respiratory Rate 18 10/31/23 08:45 Blood Pressure 135/85 10/31/23 08:45 Pulse Oximetry 95 10/31/23 08:45 Temperature 36.1 C L 10/31/23 08:48 Temperature Source Temporal Artery Scan 10/31/23 08:48 Pulse 85 10/31/23 08:48 Respiratory Rate 18 10/31/23 08:48 Respiratory Effort Normal, Non-Labored 10/31/23 08:53 Respiratory Depth Normal 10/31/23 08:53 Blood Pressure 135/85 10/31/23 08:48 Blood Pressure Position Sitting 10/31/23 08:48 Pulse Oximetry 95 10/31/23 08:48 Oxygen Delivery Method Room Air 10/31/23 08:48 Oxygen Flow Rate 0 10/31/23 08:48 Medical Decision Making 43-year-old female with wheezing throughout, no hypoxia, no significant respiratory distress, given DuoNeb therapy. Improvement in irrigation. Spacer was supplied as patient does have an albuterol inhaler but has not been using spacer. Prednisone daily for the next 5 days encouraged for suspected br onchitis. Should patient not have improvement in symptoms in 24 to 48 hours doxycycline as prescribed given that she does smoke in the outpatient setting and there is likely a component of COPD. Recheck in 48 hours recommended and return precautions reviewed and patient expressed understanding. Chest x-ray no clinical signs or symptoms consistent with right PE and no visible pneumonia on x-ray per radiology interpretation my review. No chest discomfort. Quality:SDOH Health Related Social Needs: No Data to Display PFSH All Active Problems (Updated 10/31/23 @ 09:50 by DENISSE Lacy) Bronchitis (Acute) Sebaceous cyst (Acute) Dysmenorrhea (Acute) Alcohol abuse (Chronic) Hyperbilirubinemia (Acute) Cyst of skin (Acute) Alcohol use (Acute) DUB (dysfunctional uterine bleeding) (Acute) Pelvic pain (Acute) Medical History Localized skin eruption Anxiety Mild intermittent allergic asthma without complication Panic disorder Family History Mother Essential hypertension Social History Smoking/Tobacco Use Status: Never Smoking risk assessment performed?: Yes Alcohol Intake: current Alcohol Intake frequency: 3 or more drinks per day Drug use: Daily Substance use type: marijuana Housing: house Do you feel safe at home: Yes Do you feel safe in your relationship?: Yes History History 0 Para Hx # Term Pregnancies Multiple births Hx # Pregnancies Ectopic pregnancies AB induced Hx Number of Living Children AB spontaneous PAWSS Have you Been Recently Intoxicated or Drunk Within the Last 30 days?: No Have you Ever Experienced Previous Episodes of Alcohol Withdrawal?: No Have you ever Experienced Withdrawal Seizures?: No Have you ever Experienced Delirium Tremens(DT)s?: No Have you ever undergone Alcohol Rehabilitation Treatment (i.e, inpt ot outpatient treatment programs)?: No Have you ever Experienced Blackouts?: No Have you ever Combined Alcohol with other Downers within the last 90 days?: No Have you ever Combined Alcohol with any other Substance of Abuse during the last 90 days?: No Positive Blood Alcohol level on Presentation? [PCS.BAL]: No Evidence of Increased Autonomic Activity (i.e. HR>120, tremor, sweating, agitation, nausea)?: No Result: 0
--- NOTE | 2023-10-31 10:06 | DI.VRAD_ITS ---
PROCEDURE INFORMATION: Exam: XR Chest Exam date and time: 10/31/2023 9:44 AM Age: 43 years old Clinical indication: Cough TECHNIQUE: Imaging protocol: Radiologic exam of the chest. Views: 2 views. COMPARISON: No relevant prior studies available. FINDINGS: Lungs: Unremarkable. No consolidation. Pleural spaces: Unremarkable. No pleural effusion. No pneumothorax. Heart/Mediastinum: Unremarkable. No cardiomegaly. Bones/joints: Unremarkable. IMPRESSION: No acute findings. Dictated and Authenticated by: Antony Neal MD. Ordering:REMY Sandoval MD
== END 2023-10-31 10:16 | disposition home or self-care (01) ==
PROVIDERS: Emergency Provider Physician Assistant; PCP Nurse Practitioner Family
DX: J20.9 Acute bronchitis, unspecified (principal); J45.909 Unspecified asthma, uncomplicated
CPT/HCPCS: 94640; 99284; 71046; 99283; J7512; J7620

== ENCOUNTER 2024-11-28 10:05 | Emergency (ER) | payer MEDICAID, SELFPAY ==
[2024-11-28 10:09] VITALS: BP 132/78; PULSE 79; RESP 16; TEMP 36.7; O2SAT 98
[2024-11-28 10:13] VITALS: BP 132/78; PULSE 79; RESP 16; TEMP 36.7; O2SAT 98
--- NOTE | 2024-11-28 11:03 | W.ED.GENAD ---
Discharge Plan Disposition Patient Disposition: Home Condition: Stable Discharge Details Clinical Impression: Bilateral hand numbness Primary Care Provider: Delores Rudolph ED Provider: Abiola Grady Home Meds and New Rx's Prescriptions: No Action clonazepam [Klonopin] 0.5 mg tablet 0.5 mg PO DAILY ibuprofen 200 MG capsule 800 mg PO PRN PRNQty: 3 albuterol sulfate [ProAir HFA] 8.5 GM HFA aerosol inhaler 1 puff Inhalation Q4H PRN Loratadine 10 MG TAB.RAPDIS 10 mg PO PRN Discharge Instructions Instructions: Carpal tunnel syndrome, Hand Numbness, Carpal Tunnel Exercises Additional Instructions: Wear wrist splints at night to see if it helps with symptoms. You may wear them during the day if needed. Recommend anti-inflammatories such as ibuprofen. You may also use Tylenol as needed for pain. Please follow-up with primary care. If symptoms persist you may need an EMG or orthopedic evaluation and follow-up. Discharge Data Discharge Physician: Abiola Grady [facility] General Date/Time Provider Initiated Documentation: 11/28/24 10:14. HPI Narrative: 44-year-old female presents for evaluation of bilateral hand numbness. Patient states over the last couple of months she has noticed some numbness in her hands primarily at night and in the morning. Over the last week or so she has noticed some symptoms during the day. It is worse in her right hand versus her left. It affects all of the fingers and her hand. She denies any known trauma. No neck or back pain. No weakness. No known tick bites or rashes. No new medications. No nausea, vomiting, diarrhea. No history of diabetes. She states that she had been unemployed for a while however prior to the symptoms starting she became employed full-time and does do a lot of movement with her wrists while working. No known history of carpal tunnel. Patient states that she did notice some slight discomfort under her right armpit today however feels that is likely secondary to embedded hair follicle. Related Data Home Medications ?Medication ?Instructions ?Recorded ?Confirmed Loratadine 10 mg PO PRN 12/02/16 11/28/24 albuterol sulfate 90 mcg/actuation 1 puff inhalation Q4H PRN 12/02/16 11/28/24 aerosol inhaler (ProAir HFA) ibuprofen 200 mg capsule 800 mg PO PRN PRN ##3 12/02/16 11/28/24 clonazepam 0.5 mg tablet (Klonopin) 0.5 mg PO DAILY 09/04/21 11/28/24 Allergies Allergy/AdvReac Type Severity Reaction Status Date / Time mold Allergy Intermediate Other (See Uncoded 11/28/24 10:13 Comment) General Stated Complaint: GenMedical PONCE: 3 Review of Systems Narrative: Remainder of review of systems otherwise negative except for as noted in the HPI x 5. Exam Narrative Exam Narrative: General: non-toxic, no respiratory distress, comfortable HEENT: normocephalic, atraumatic, lids and lashes normal, PERRL, EOMI, anicteric sclera, no conjunctival injection, moist oral mucosa Neck: No vertebral tenderness, no meningeal signs Musculoskeletal: No pain to palpation over trapezius, 2+ radial pulses bilaterally, full range of motion of arms and legs, no tenderness to palpation. no clubbing, cyanosis, or edema Neurologic: appropriate for age, strength normal Psych: alert and oriented Skin: Small amount of swelling to right axilla without any erythema, warmth, fluctuance, otherwise no petechiae, no lesions, warm and dry Course Vital Signs Vital signs: Vital Signs Temperature 36.7 C 11/28/24 10:09 Pulse 79 11/28/24 10:09 Respiratory Rate 16 11/28/24 10:09 Blood Pressure 132/78 11/28/24 10:09 Pulse Oximetry 98 11/28/24 10:09 Temperature 36.7 C 11/28/24 10:13 Pulse 79 11/28/24 10:13 Respiratory Rate 16 11/28/24 10:13 Blood Pressure 132/78 11/28/24 10:13 Pulse Oximetry 98 11/28/24 10:13 Pain Level 0 11/28/24 10:13 Medical Decision Making 44-year-old female presents for evaluation of bilateral hand numbness which has been intermittent and primarily at night. Clinically patient is neurologically intact at this time. She has got full strength and sensation. Her symptoms are consistent with possible carpal tunnel. There is a small area of swelling under her right axilla however there is no erythema, warmth, induration, fluctuance. Not amendable to I&D at this time. She will continue to monitor the area. Laboratory studies are unremarkable. Tick panel pending. Patient is given bilateral wrist splints to see if this helps with pain. I have recommended close follow-up with primary care. She understands that she may need to see orthopedics and/or to have an EMG and follow-up if symptoms persist. PFSH All Active Problems (Updated 11/28/24 @ 11:58 by Abiola Grady MD) Bilateral hand numbness (Acute) Sebaceous cyst (Acute) Dysmenorrhea (Acute) Alcohol abuse (Chronic) Hyperbilirubinemia (Acute) Cyst of skin (Acute) Alcohol use (Acute) DUB (dysfunctional uterine bleeding) (Acute) Pelvic pain (Acute) Medical History Localized skin eruption Anxiety Mild intermittent allergic asthma without complication Panic disorder Family History Mother Essential hypertension Social History Smoking/Tobacco Use Status: Never Smoking risk assessment performed?: Yes Alcohol Intake: current Alcohol Intake frequency: 3 or more drinks per day Drug use: Daily Substance use type: marijuana Housing: house Do you feel safe at home: Yes Do you feel safe in your relationship?: Yes History History 0 Para Hx # Term Pregnancies Multiple births Hx # Pregnancies Ectopic pregnancies AB induced Hx Number of Living Children AB spontaneous
[2024-11-28 11:07] LABS: Abs Immature Grans 0.00 10^3/uL (0.0-0.06); HCT 39.3 % (36.0-46.0); HGB 13.5 g/dL (11.2-15.7); Immature Grans % 0.0 %; MCH 31.4 pg (27.0-33.0); MCHC 34.4 % (32.0-36.0); MCV 91 fL (80-95); MPV 9.0 fL (8.0-11.0); Platelet Count 360 10^3/uL (130-400); RBC 4.30 10^6/uL (3.93-5.22); RDW 13.1 % (11.7-14.6); RDW-SD 43.8 fL; WBC 4.41 10^3/uL (4.4-10.8)
[2024-11-28 11:33] LABS: ALT 31 U/L (14-59); AST 20 U/L (15-37); Albumin 3.6 g/dL (3.4-5.0); Alkaline Phosphatase 64 U/L (46-116); Anion Gap 7.4 mmol/L (3-11); BUN 11 mg/dL (7-18); Bilirubin, Total 0.8 mg/dL (0.2-1.0); CO2 25.6 mmol/L (21.0-32.0); Calcium 9.2 mg/dL (8.5-10.1); Chloride 106 mmol/L (98-107); Estimated GFR 117.80 (mL/min/1.73m2); Glucose 121 mg/dL (74-106); Potassium 3.9 mmol/L (3.5-5.1); Sodium 139 mmol/L (136-145); Total Protein 7.0 g/dL (6.4-8.2)
[2024-11-29 10:34] LABS: Lyme Ab w Rflx to Lyme Confirm Negative (Negative)
[2024-11-30 22:41] LABS: B. miyamotoi PCR Negative (Negative); Babesia divergens/MO-1 Negative (Negative); Ehrlichia muris eauclairensis Negative (Negative)
== END 2024-11-28 12:32 | disposition home or self-care (01) ==
PROVIDERS: Emergency Provider Emergency Medicine Emergency Medical Services; PCP Nurse Practitioner Family
DX: R20.0 Anesthesia of skin (principal); M25.531 Pain in right wrist; M25.532 Pain in left wrist
CPT/HCPCS: 99283 ×2; 29125; 80053; 87798; 85025; 86618

== ENCOUNTER 2025-04-23 12:15 | Emergency (ER) | payer MEDICAID, SELFPAY ==
[2025-04-23 12:28] VITALS: BP 125/82; PULSE 75; RESP 15; TEMP 36.6; O2SAT 98
--- NOTE | 2025-04-23 16:07 | W.ED.GENAD ---
Discharge Plan Disposition Patient Disposition: Home Discharge Details Clinical Impression: Acute right-sided low back pain Primary Care Provider: Delores Rudolph ED Provider: Arun Hogan Home Meds and New Rx's Prescriptions: New lidocaine [Lidoderm] 5 % adhesive patch,medicated 1 patch topical DAILY Qty: 15 0RF Rx Instructions: leave on most painful area for up to 12 hrs methocarbamol 750 mg tablet 750 mg PO TID Qty: 7 0RF Continued clonazepam [Klonopin] 0.5 mg tablet 0.5 mg PO DAILY ibuprofen 200 MG capsule 800 mg PO PRN PRNQty: 3 albuterol sulfate [ProAir HFA] 8.5 GM HFA aerosol inhaler 1 puff Inhalation Q4H PRN Loratadine 10 MG TAB.RAPDIS 10 mg PO PRN Discharge Instructions Instructions: Low back pain in adults Additional Instructions: You are seen in the emergency department for your low back pain. As we discussed if you develop any numbness or tingling between your legs or if you lose control of your bowels or bladder or if you have any other concerns please return to the emergency department. You most likely have had a musculoskeletal strain for which you should take the prescribed muscle relaxer in addition to the medications below. For your pain please take medications as follows: 1. Take acetaminophen (Tylenol), 1,000 mg (two 500 mg tabs) every 6 hours [2. Take ibuprofen (Advil), 400 mg every 6 hours.] Stand Alone Forms: Portal Information, Work Release Discharge Data Discharge Date/Time-TO BE ENTERED AT DEPARTURE: 04/23/25 16:25 HPI General Date/Time Provider Initiated Documentation: 04/23/25 12:46. HPI Narrative: MDM This is an overall very well-appearing normothermic and nontachycardic 45-year-old female with musculoskeletal back pain for which patient will receive methocarbamol and empiric trial of discharge with expectant outpatient management. No loss of bowel or bladder control to suggest cauda equina. Based on age and acuity of the presentation and not suspicious for malignancy. No recent spinal surgeries to suggest increased risk for spinal epidural hematoma. No fevers nor IV drug use to suggest increased risk for spinal epidural abscess. Soft nontender abdomen so not suspicious for intra-abdominal infection. No rash to flank to suggest zoster. No history of ureteral lithiasis to suggest ureteral lithiasis. Patient is neurologically intact so not suspicious for spinal cord compression. She is intact patellar reflexes and no clonus at the ankles. I provided the patient with a work note. We discussed that patient should return to the ED if patient developed any weakness in any extremities if she lost control of her bowels or bladder or if she had any other concerns. She understood her return indications and was discharged with an empiric trial of expectant outpatient management. We discussed scheduled acetaminophen and ibuprofen and I also prescribed Lidoderm patch. HPI History of Present Illness This is a patient presenting with back pain. The patient began experiencing back pain 2 days ago. The pain is localized to the right side of her back. She has a history of similar episodes and believes the current one is not severe. She reports no anterior pain, nausea, vomiting, fever, cough, or chest pain. She also reports no numbness in the perineal area. She has no history of kidney stones or back surgeries. She is not an intravenous drug user. She is able to move her legs without difficulty but experiences pain when stretching. She is seeking muscle relaxants as a potential treatment. 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 She has carpal tunnel syndrome, which causes numbness in her hands and leads to frequent tossing and turning during sleep. Exam General: Well-appearing in no acute distress speaking in complete sentences. Head: Normocephalic, atraumatic. Eye: Extraocular eye movements intact. No conjunctival injection. No scleral icterus. Ear, nose, mouth, throat: Grossly normal inspection. Normal voice, handling secretions normally. Neck: Trachea midline. Cardiovascular: Well-perfused distal extremities. Respiratory: Nonlabored respiration. Clear lungs bilaterally. Back: No thoracic nor lumbar spinal tenderness. Patient has a right sided low paraspinal muscle lumbar tenderness. Gastrointestinal: Nondistended abdomen. Musculoskeletal: No edema. Moving all 4 extremities spontaneously. 5 out of 5 bilateral lower extremity strength in dorsi and plantarflexion. 2+ bilateral patellar reflexes. No clonus to ankles bilaterally. Skin: Normal for age and race, grossly normal temperature and turgor. No acute rash. Neurologic: Alert and appropriate, no apparent acute deficits. Psychiatric: Mood and manner are appropriate. Grooming and personal hygiene are appropriate. Related Data Home Medications ?Medication ?Instructions ?Recorded ?Confirmed Loratadine 10 mg PO PRN 12/02/16 04/23/25 albuterol sulfate 90 mcg/actuation 1 puff inhalation Q4H PRN 12/02/16 04/23/25 aerosol inhaler (ProAir HFA) ibuprofen 200 mg capsule 800 mg PO PRN PRN ##3 12/02/16 04/23/25 clonazepam 0.5 mg tablet (Klonopin) 0.5 mg PO DAILY 09/04/21 04/23/25 lidocaine 5 % topical patch 1 patch topical DAILY #15 ea 04/23/25 (Lidoderm) methocarbamol 750 mg tablet 750 mg PO TID #7 tabs 04/23/25 Previous Rx's ?Medication ?Instructions ?Recorded lidocaine 5 % topical patch 1 patch topical DAILY #15 ea 04/23/25 (Lidoderm) methocarbamol 750 mg tablet 750 mg PO TID #7 tabs 04/23/25 Allergies Allergy/AdvReac Type Severity Reaction Status Date / Time mold Allergy Intermediate Other (See Uncoded 04/23/25 12:31 Comment) General Stated Complaint: Nk/Back Pain PONCE: 3 Course Vital Signs Vital signs: Vital Signs Temperature 36.6 C 04/23/25 12:28 Pulse 75 04/23/25 12:28 Respiratory Rate 15 04/23/25 12:28 Blood Pressure 125/82 04/23/25 12:28 Pulse Oximetry 98 04/23/25 12:28 Temperature 36.6 C 04/23/25 12:28 Temperature Source Oral 04/23/25 12:28 Pulse 75 04/23/25 12:28 Respiratory Rate 15 04/23/25 12:28 Blood Pressure 125/82 04/23/25 12:28 Blood Pressure Position Sitting 04/23/25 12:28 Pulse Oximetry 98 04/23/25 12:28 Oxygen Delivery Method Room Air 04/23/25 12:28 Oxygen Flow Rate 0 04/23/25 12:28 Pain Level 10 04/23/25 12:28 PFSH All Active Problems (Updated 04/23/25 @ 16:17 by Arun Hogan MD) Acute right-sided low back pain (Acute) Bilateral carpal tunnel syndrome (Acute) Sebaceous cyst (Acute) Dysmenorrhea (Acute) Alcohol abuse (Chronic) Hyperbilirubinemia (Acute) Cyst of skin (Acute) Alcohol use (Acute) DUB (dysfunctional uterine bleeding) (Acute) Pelvic pain (Acute) Medical History Localized skin eruption Anxiety Mild intermittent allergic asthma without complication Panic disorder Family History Mother Essential hypertension Social History Smoking/Tobacco Use Status: Never Smoking risk assessment performed?: Yes Alcohol Intake: current Alcohol Intake frequency: 3 or more drinks per day Drug use: Daily Substance use type: marijuana Housing: house Do you feel safe at home: Yes Do you feel safe in your relationship?: Yes History History 0 Para Hx # Term Pregnancies Multiple births Hx # Pregnancies Ectopic pregnancies AB induced Hx Number of Living Children AB spontaneous PAWSS Have you Been Recently Intoxicated or Drunk Within the Last 30 days?: No Have you Ever Experienced Previous Episodes of Alcohol Withdrawal?: No Have you ever Experienced Withdrawal Seizures?: No Have you ever Experienced Delirium Tremens(DT)s?: No Have you ever undergone Alcohol Rehabilitation Treatment (i.e, inpt ot outpatient treatment programs)?: No Have you ever Experienced Blackouts?: No Have you ever Combined Alcohol with other Downers within the last 90 days?: No Have you ever Combined Alcohol with any other Substance of Abuse during the last 90 days?: No Positive Blood Alcohol level on Presentation? [PCS.BAL]: No Evidence of Increased Autonomic Activity (i.e. HR>120, tremor, sweating, agitation, nausea)?: No Result: 0
== END 2025-04-23 16:25 | disposition home or self-care (01) ==
PROVIDERS: Emergency Provider Emergency Medicine; PCP Nurse Practitioner Family
DX: M54.50 Low back pain, unspecified (principal)
CPT/HCPCS: 99283 ×2